=== PATIENT | male | born 1965 | race Caucasian/White ===

== ENCOUNTER 2023-06-23 08:39 | Day surgery (SDC) | payer BC ==
[2023-06-21 16:07] VITALS: BMI 23.7
[2023-06-23] MEDS ORDERED: Lidocaine 1% (PF) 30 ML VIAL ONE (10:59)
[2023-06-23] MEDS ORDERED: EPINEPHrine 1 MG/ML AMP ONE (10:59)
[2023-06-23] MEDS ORDERED: Bacitracin Zinc Ointment 30 gm TUBE ONE (10:59)
[2023-06-23] MEDS ORDERED: fentaNYL 50 mcg/mL 1 mL Vial ONE (11:04)
[2023-06-23] MEDS ORDERED: fentaNYL PF 100 MCG/2 ML SYRINGE ONE (11:05)
[2023-06-23] MEDS ORDERED: SUGAMMADEX SODIUM 200 MG/2 ML VIAL ONE (11:10)
[2023-06-23] MEDS ORDERED: ePHEDrine Sulfate 50 MG/10 ML VIAL ONE (11:18)
[2023-06-23] MEDS ORDERED: PROPOFOL 200 MG/20 ML VIAL ONE (11:18)
[2023-06-23] MEDS ORDERED: Dexamethasone 20 MG/5 ML VIAL ONE (11:18)
[2023-06-23] MEDS ORDERED: PHENYLEPHRINE-NS 100 MCG/ML 10 ML SYRINGE ONE (11:18)
[2023-06-23] MEDS ORDERED: Rocuronium Bromide 10 MG/ML (10ML VIAL) ONE (11:18)
[2023-06-23] MEDS ORDERED: diphenhydrAMINE 50 MG/ML VIAL ONE (11:18)
[2023-06-23] MEDS ORDERED: Ondansetron PF 4 MG/2 ML Vial ONE (11:18)
[2023-06-23] MEDS ORDERED: Metoclopramide HCl 10 MG/2 ML VIAL ONE (11:18)
[2023-06-23] MEDS ORDERED: Lidocaine 1% PF 5 ML VIAL ONE (11:18)
[2023-06-23] MEDS ORDERED: Ciprofloxacin 0.2% Otic (0.25ML CONTAINER) ONE (11:45)
[2023-06-23] MEDS ORDERED: HYDROcodone/Acetaminophen 5/325 mg Tablet ONE ×2 (14:00→14:48)
== END 2023-06-23 15:10 | disposition home or self-care (01) ==
LOC: SDC 08:39
PROVIDERS: ATTEND Specialist
PROC: 09U807Z Supplement Left Tympanic Membrane with Autologous Tissue Substitute, Open Approach (ICD-10-PCS; principal; 2023-06-23)
DX: S09.22XA Traumatic rupture of left ear drum, initial encounter (principal); H90.A32 Mixed conductive and sensorineural hearing loss, unilateral, left ear with restricted hearing on the contralateral side; X58.XXXA Exposure to other specified factors, initial encounter
CPT/HCPCS: 93005; 93010; J0171; J1100; J1200; J2001; J2405; J2704; J2765; J3010

== ENCOUNTER 2024-07-18 08:06 | Outpatient (CLI) | payer BC | END 2024-07-18 08:07 | disposition home or self-care (01) | LOC: BICULT 08:06 | PROVIDERS: ATTEND Nurse Practitioner Family | DX: R74.8 Abnormal levels of other serum enzymes (principal); R93.2 Abnormal findings on diagnostic imaging of liver and biliary tract | CPT/HCPCS: 76700 ==